=== PATIENT | female | born 1990 | race Caucasian/White ===

== ENCOUNTER 2024-03-16 12:37 | Outpatient (CLI) | payer OTHER, SELFPAY ==
[2024-03-16 13:29] LABS: Monoscreen Negative (Negative); Negative Monotest Control Negative (Negative); Positive Monotest Control Positive (Positive)
[2024-03-16 13:41] LABS: Strep Group A RT-PCR NOT DETECTED (Negative)
[2024-03-16 13:47] LABS: Influenza A QL RT-PCR Negative (Negative); Influenza B QL RT-PCR Negative (Negative); RSV RNA, RT-PCR Negative (Negative); SARS-CoV-2 RNA PCR Positive (Negative)
== END 2024-03-16 12:38 | disposition home or self-care (01) ==
LOC: ANHLAB 12:40
PROVIDERS: PCP Emergency Medicine; Visit Provider Emergency Medicine
DX: B34.9 Viral infection, unspecified (principal)
CPT/HCPCS: 36415; 86308; 87637; 87651